=== PATIENT | female | born 1995 | race American Indian/Alaskan Native ===

== ENCOUNTER 2019-05-13 03:07 | Emergency (ER) | payer MEDICAID ==
[2019-05-13 03:39] LABS: Basophils # (Auto) 0.1 K/mm3 (0.0-0.1); Basophils % (Auto) 0.8 % (0.0-1.8); Eosinophils # (Auto) 0.3 K/mm3 (0.0-0.4); Eosinophils % (Auto) 2.7 % (0.0-4.3); Hematocrit 39.6 % (30.3-42.9); Lymphocytes # (Auto) 3.2 K/mm3 (1.2-5.4); Lymphocytes % (Auto) 32.4 % (13.4-35.0); Mean Corpuscular HGB Conc 33 % (30-34); Mean Corpuscular Volume 90 fl (79-97); Monocytes # (Auto) 1.1 K/mm3 (0.0-0.8); Monocytes % (Auto) 11.2 % (0.0-7.3); Platelet Count 232 K/mm3 (140-440); Red Cell Distribution Width 13.9 % (13.2-15.2)
[2019-05-13 03:55] LABS: Bilirubin,Urine NEG (Negative); Blood,Urine LG (Negative); Color,Urine Yellow (Yellow); Urobilinogen,Urine < 2.0 mg/dL (<2.0)
[2019-05-13 04:02] LABS: RBC,Urine > 182.0 /HPF (0.0-6.0)
--- NOTE | 2019-05-13 04:39 | Ultrasound Report ---
OB ultrasound first trimester INDICATION: Vaginal bleeding Findings: Transabdominal and transvaginal imaging is performed. No intrauterine is seen. Endometrial stripe measures 9 mm. The uterus measures 9.7 cm in le ngth. The right ovary measures 3 cm the left ovary measures 3.4 cm. The ovaries are unremarkable in appeara nce. There is no free fluid. No adnexal masses are seen. IMPRESSION: No intrauterine is seen. Uterus and ovaries are unremarkable. Correlation with serum beta hCG level is recommended. Follow-up ultrasound should be obtained as clin ically warranted. Signer Name: Tito Spicer MD Signed: 05/13/2019 4:34 AM Workstation Name: [id number]
--- NOTE | 2019-05-13 05:05 | Event Note ---
ED Screening Note Date of service: 05/13/19 Time: 04:45 ED Screening Note: Patient here reported that she is 11 weeks and has been passing clots with vaginal bleeding. She says she is now spotting. Patient says she had an ultrasound at 6 weeks and everything was fine. Her pain is located in her pelvic area. Patient was tenderness to palpate in pelvic area This initial assessment/diagnostic orders/clinical plan/treatment(s) is/are subject to change based on patients health status, clinical progression and re- assessment by fellow clinical providers in the ED. Further treatment and workup at subsequent clinical providers discretion. Patient/guardian urged not to elope from the ED as their condition may be serious if not clinically assessed and managed. Initial orders include: CBC, quantitative hCG, urinalysis and type and screen. OB ultrasound
[2019-05-13] MEDS ORDERED: MORPHINE IV ONE (05:11)
--- NOTE | 2019-05-13 07:21 | Emergency Department Report ---
ED HPI - General Chief complaint: Vaginal Bleeding Stated complaint: (11 WEEKS) AND BLEEDING Time Seen by Provider: 05/13/19 07:13 Source: patient Mode of arrival: Ambulatory Limitations: No Limitations - History of Present Illness Initial comments: This is a 23-year-old female nontoxic, well nourished in appearance, no acute signs of distress presents to the ED with c/o of vaginal bleeding and pelvic cramping x1 day. Patient stated she is currently about 11 weeks and had a ultrasound in 6 weeks by her [employer] that was normal.. Patient denies any abdominal pain. Patient denies any vaginal discharge or foul odor. Patient denies any nausea, vomiting, chest pain, shortness of breathe, fever, chills, headache, stiff neck, numbness, tingling. Patient denies any urinary symptoms. Patient denies any allergies or PMH. MD Complaint: vaginal bleeding, other (pelvic pain) -: days(s) (1) Location: pelvis Radiation: none Severity: mild Severity scale (0 -10): 3 Quality: cramping, aching Consistency: constant Improves with: none Associated symptoms: vaginal bleeding. denies: nausea/vomiting, vaginal discharge, abdominal pain, dysuria, headache, vision changes, malaise, dysparuenia, rash, seizure, shortness of breath, syncope, weakness Vaginal bleeding: light :: Yes Number of weeks : 11 Pre- care: followed by OB - Related Data Previous Rx's Medication Instructions Recorded Last Taken Type Nitrofurantoin [place]/M-Cryst 100 mg PO Q12HR #14 capsule 05/13/19 Unknown Rx [Macrobid CAP] Allergies Allergy/AdvReac Type Severity Reaction Status Date / Time No Known Allergies Allergy Unverified 05/13/19 03:16 ED Review of Systems ROS: Stated complaint: (11 WEEKS) AND BLEEDING Other details as noted in HPI Constitutional: denies: chills, fever Eyes: denies: eye pain, eye discharge, vision change ENT: denies: ear pain, throat pain Respiratory: denies: cough, shortness of breath, wheezing Cardiovascular: denies: chest pain, palpitations Endocrine: no symptoms reported Gastrointestinal: denies: abdominal pain, nausea, diarrhea Genitourinary: abnormal menses. denies: urgency, dysuria, discharge Musculoskeletal: denies: back pain, joint swelling, arthralgia Skin: denies: rash, lesions Neurological: denies: headache, weakness, paresthesias Psychiatric: denies: anxiety, depression Hematological/Lymphatic: denies: easy bleeding, easy bruising ED Past Medical Hx - Past Medical History Previous Medical History?: No - Surgical History Past Surgical History?: No - Social History Smoking Status: Never Smoker Substance Use Type: None - Medications Home Medications: Home Medications Medication Instructions Recorded Confirmed Last Taken Type Nitrofurantoin [place]/M-Cryst 100 mg PO Q12HR #14 capsule 05/13/19 Unknown Rx [Macrobid CAP] ED Physical Exam - General Limitations: No Limitations General appearance: alert, in no apparent distress - Head Head exam: Present: atraumatic, normocephalic - Neck Neck exam: Present: normal inspection, full ROM. Absent: tenderness, meningism us, lymphadenopathy - GI/Abdominal GI/Abdominal exam: Present: soft, normal bowel sounds. Absent: distended, tenderness, guarding, rebound, rigid, diminished bowel sounds - Extremities Exam Extremities exam: Present: normal inspection, full ROM - Back Exam Back exam: Present: normal inspection, full ROM. Absent: tenderness, CVA tenderness (R), CVA tenderness (L), muscle spasm, paraspinal tenderness, vertebral tenderness, rash noted - Neurological Exam Neurological exam: Present: alert, oriented X3, normal gait - Psychiatric Psychiatric exam: Present: normal affect, normal mood - Skin Skin exam: Present: warm, dry, intact, normal color. Absent: rash ED Course Vital Signs 05/13/19 06:01 Temperature 99 F Pulse Rate 74 Respiratory 16 Rate Blood Pressure 118/73 [Left] O2 Sat by Pulse 99 Oximetry - Reevaluation(s) Reevaluation #1: 05/13/19 07:22 Patient is speaking in full sentences with no signs of distress noted. ED Medical Decision Making - Lab Data Result diagrams: 05/13/19 03:20 - Medical Decision Making This is a 23-year-old female presents with spontaneous miscarriage and UTI. Patient is stable and was examined by me. Normal abdominal exam. US OB obtained and dictated by the radiologist. Ua obtained. Quantative serum test obtained. Patient notified of the US report with no questions noted by the patient. Patient was instructed f/u with [employer] in 2 days. RH factor negative. Patient received rhogam in the ED. Labs within normal limits. At time of discharge, the patient does not seem toxic or ill in appearance. No acute signs of distress noted. Patient agrees to discharge treatment plan of care. No further questions noted by the patient. Critical care attestation.: If time is entered above; I have spent that time in minutes in the direct care of this critically ill patient, excluding procedure time. ED Disposition Clinical Impression: Spontaneous miscarriage UTI (urinary tract infection) Qualifiers: Urinary tract infection type: acute cystitis Hematuria presence: without hematuria Qualified Code(s): N30.00 - Acute cystitis without hematuria Disposition: TO HOME OR SELFCARE Is pt being admited?: No Does the pt Need Aspirin: No Condition: Stable Instructions: Spontaneous Miscarriage (ED), Urinary Tract Infection in Women (ED) Additional Instructions: Follow-up with a OBGYN in 2 days or if symptoms worsen and continue return to emergency room as soon as possible. Prescriptions: Nitrofurantoin [place]/M-Cryst [Macrobid CAP] 100 mg PO Q12HR #14 capsule Referrals: PRIMARY CAREMD [Primary Care Provider] - 3-5 Days BLANCA GIBBS MD [Staff Physician] - 3-5 Days [facility] [Provider Group] - 3-5 Days Forms: Work/School Release Form(ED)
[2019-05-13 09:34] VITALS: BP 119/84
== END 2019-05-13 09:20 | disposition home or self-care (01) ==
LOC: ED 03:07
DX: O03.9 Complete or unspecified spontaneous abortion without complication (principal); O23.41 Unspecified infection of urinary tract in pregnancy, first trimester; Z3A.11 11 weeks gestation of pregnancy
CPT/HCPCS: 36415; 36430; 76801; 76817; 81001; 84702; 85025; 85461; 86850; 86900; 86901; 87086; 96374; 99284; J2270; J2790

== ENCOUNTER 2019-12-11 19:30 | Emergency (ER) | payer MEDICAID ==
[2019-12-11 19:37] VITALS: BP 103/72
--- NOTE | 2019-12-11 20:33 | Emergency Department Report ---
ED Allergic Reaction HPI - General Chief complaint: Allergic Reaction Stated complaint: ALLERGIC REACTION Time Seen by Provider: 12/11/19 20:02 Source: patient Mode of arrival: Ambulatory Limitations: No Limitations - History of Present Illness Initial Comments: Patient is a 24-year-old female that presents emergency room with allergic reaction. Patient states she is having red blotches all over and itching all over. Patient states that the itching is intense. Patient states itching is worse with hot shower and activity. Patient states the itching is better with rest and a cool towel. Patient that she has tried Benadryl and it is not helping. Patient states she is currently taking Tylenol Sinus for her allergies and she is taking Bactrim for cellulitis of her right breast. Patient states she saw her primary care 4 days ago and was given Bactrim DS 2 tablets every 8 hours for 14 days. Patient states her breast is improving. Patient denies discharge from her breast. Patient denies tenderness to her breast. Patient denies pain. Patient denies chest pain or shortness of breath. Patient denies recent travel. Patient denies recent international travel. Patient denies exposure to the novel coronavirus. Patient denies sick contacts. Patient denies fever and chills. Patient denies cough. Patient denies diarrhea. Patient denies coming in contact with anybody with symptoms of the novel coronavirus. Complaint: allergic reaction, other -: Sudden Exposure: medication Symptoms: rash, itching Severity: severe Treatment Prior to Arrival: benadryl, ice, other Previous Allergy History: none - Related Data Previous Rx's Medication Instructions Recorded Last Taken Type Nitrofurantoin [place]/M-Cryst 100 mg PO Q12HR #14 capsule 05/13/19 Unknown Rx [Macrobid CAP] Doxycycline Hyclate [Doxycycline 100 mg PO Q12HR 14 Days #7 tab 12/11/19 Unknown Rx Hyclate TAB] methylPREDNISolone [Medrol 4MG 4 mg PO DAILY 6 Days #1 tab.ds.pk 12/11/19 Unknown Rx DOSEPAK (21 tabs)] Allergies Allergy/AdvReac Type Severity Reaction Status Date / Time No Known Allergies Allergy Unverified 05/13/19 03:16 ED Review of Systems ROS: Stated complaint: ALLERGIC REACTION Other details as noted in HPI Constitutional: denies: chills, fever Eyes: denies: eye pain, eye discharge, vision change ENT: denies: ear pain, throat pain Respiratory: denies: cough, shortness of breath, wheezing Cardiovascular: denies: chest pain, palpitations Endocrine: no symptoms reported Gastrointestinal: denies: abdominal pain, nausea, diarrhea Genitourinary: denies: urgency, dysuria, discharge Musculoskeletal: denies: back pain, joint swelling, arthralgia Skin: rash, pruritus. denies: lesions Neurological: denies: headache, weakness, paresthesias Psychiatric: denies: anxiety, depression Hematological/Lymphatic: denies: easy bleeding, easy bruising ED Past Medical Hx - Past Medical History Previous Medical History?: No - Surgical History Past Surgical History?: No - Family History Family history: no significant - Social History Smoking Status: Never Smoker Substance Use Type: None - Medications Home Medications: Home Medications Medication Instructions Recorded Confirmed Last Taken Type Nitrofurantoin [place]/M-Cryst 100 mg PO Q12HR #14 capsule 05/13/19 Unknown Rx [Macrobid CAP] Doxycycline Hyclate [Doxycycline 100 mg PO Q12HR 14 Days #7 tab 12/11/19 Unknown Rx Hyclate TAB] methylPREDNISolone [Medrol 4MG 4 mg PO DAILY 6 Days #1 tab.ds.pk 12/11/19 Unknown Rx DOSEPAK (21 tabs)] ED Physical Exam - General Limitations: No Limitations General appearance: alert, in no apparent distress - Head Head exam: Present: atraumatic, normocephalic - Eye Eye exam: Present: normal appearance - ENT ENT exam: Present: mucous membranes moist - Neck Neck exam: Present: normal inspection - Respiratory Respiratory exam: Present: normal lung sounds bilaterally. Absent: respiratory distress - Cardiovascular Cardiovascular Exam: Present: regular rate, normal rhythm. Absent: systolic murmur, diastolic murmur, rubs, gallop - GI/Abdominal GI/Abdominal exam: Present: soft, normal bowel sounds - Extremities Exam Extremities exam: Present: normal inspection - Back Exam Back exam: Present: normal inspection - Neurological Exam Neurological exam: Present: alert, oriented X3 - Psychiatric Psychiatric exam: Present: normal affect, normal mood - Skin Skin exam: Present: warm, dry, intact, rash, erythema ED Course Vital Signs 12/11/19 12/11/19 19:37 22:14 Temperature 99.0 F Pulse Rate 91 H 88 Respiratory 16 17 Rate Blood Pressure 103/72 [Right] O2 Sat by Pulse 99 98 Oximetry - Reevaluation(s) Reevaluation #1: Initial evaluation done. Patient appears to be taking a extremely high dose of Bactrim. I reviewed the Bactrim prescription for which the patient has brought with her. The prescription read Bactrim DS 2 tablets p.o. every 8 hours for 14 days. Based on the patient having history of cellulitis and taking an extreme amount of Bactrim, we will check the patient's CMP and CBC. 12/11/19 20:33 Reevaluation #2: I discussed all results and clinical findings with patient. I discussed plan of care with patient. Patient agrees with plan of care. Patient is stable for discharge. Patient will be discharged home. Patient given discharge instructions. Patient voiced understanding of discharge instructions. 12/11/19 21:21 ED Medical Decision Making - Lab Data Result diagrams: 12/11/19 20:37 12/11/19 20:37 - Medical Decision Making Patient is a 24-year-old female that presents emergency room with complaints of rash, pruritus. Patient has been taking Tylenol Sinus for her allergies and was also placed by her primary care on Bactrim DS for breast cellulitis. Patient stated that her breast complaints had improved. Patient's Bactrim prescription was Bactrim DS 2 tablets p.o. every 8 hours for 14 days. I believe this is a extreme amount of Bactrim and Bactrim will be stopped. Patient will be placed on doxycycline and given a steroid pack for her pruritus. Patient had labs done secondary to her complaints and labs are essentially unremarkable. Patient stable for discharge. Patient given discharge structures. Patient discharged home. - Differential Diagnosis Med reaction, allergic reaction, rash, itching, pruritus Critical care attestation.: If time is entered above; I have spent that time in minutes in the direct care of this critically ill patient, excluding procedure time. ED Disposition Clinical Impression: Itching due to drug, Rash, Abnormal LFTs Medication reaction Qualifiers: Encounter type: initial encounter Qualified Code(s): T50.905A - Adverse effect of unspecified drugs, medicaments and biological substances, initial encounter Allergic reaction Qualifiers: Encounter type: initial encounter Qualified Code(s): T78.40XA - Allergy, unspe cified, initial encounter Disposition: TO HOME OR SELFCARE Is pt being admited?: No Does the pt Need Aspirin: No Condition: Stable Instructions: Urticaria (ED), Acute Rash (ED), Antibiotic Medication Allergy (ED), Allergies (ED) Additional Instructions: patient to stop Bactrim. Patient to start doxycycline tomorrow. Patient to follow-up with primary care in 2 to 3 days. Patient to rest. Patient to increase water. Patient to take ibuprofen as needed for pain. Patient will require repeat labs with her primary care to reassess her liver. Patient to avoid alcohol and fatty foods. Patient to take Benadryl as needed for itching. Patient to avoid Tylenol. Patient to take meds as directed. Patient to return to the ER if condition worsens, changes or new symptoms arise. Prescriptions: Doxycycline Hyclate [Doxycycline Hyclate TAB] 100 mg PO Q12HR 14 Days #7 tab methylPREDNISolone [Medrol 4MG DOSEPAK (21 tabs)] 4 mg PO DAILY 6 Days #1 tab.ds.pk Referrals: PRIMARY CARE, [Primary Care Provider] - 2-3 Days Time of Disposition: 21:39
[2019-12-11 20:58] LABS: Hematocrit 41.3 % (30.3-42.9); Hemoglobin 13.9 gm/dl (10.1-14.3); Mean Corpuscular HGB Conc 34 % (30-34); Mean Corpuscular Volume 89 fl (79-97); Platelet Count 137 K/mm3 (140-440); Red Blood Count 4.63 M/mm3 (3.65-5.03); Red Cell Distribution Width 13.9 % (13.2-15.2)
[2019-12-11 21:12] LABS: Alanine Aminotransferase 69 units/L (7-56); Albumin 4.1 g/dL (3.9-5); BUN/Creatinine Ratio 8; Blood Urea Nitrogen 8 mg/dL (7-17); Calcium 8.6 mg/dL (8.4-10.2); Hemolysis Index 26
[2019-12-11] MEDS ORDERED: methylPREDNISolone Sod Succinate 125 MG/2 ML INJ IM ONE (21:20)
== END 2019-12-11 21:45 | disposition home or self-care (01) ==
LOC: ED 19:30
DX: T50.905A Adverse effect of unspecified drugs, medicaments and biological substances, initial encounter (principal); T78.40XA Allergy, unspecified, initial encounter; Z79.899 Other long term (current) drug therapy; X58.XXXA Exposure to other specified factors, initial encounter; Y93.89 Activity, other specified; Y92.89 Other specified places as the place of occurrence of the external cause; Y99.8 Other external cause status
CPT/HCPCS: 36415; 80053; 85027; 96372; 99283; J2930

== ENCOUNTER 2020-03-30 23:10 | Emergency (ER) | payer MEDICAID ==
[2020-03-31 01:53] VITALS: BP 119/76
[2020-03-31 03:09] LABS: Basophils % (Auto) 0.7 % (0.0-1.8); Eosinophils # (Auto) 0.1 K/mm3 (0.0-0.4); Eosinophils % (Auto) 1.2 % (0.0-4.3); Hemoglobin 13.7 gm/dl (10.1-14.3); Lymphocytes # (Auto) 2.4 K/mm3 (1.2-5.4); Lymphocytes % (Auto) 35.7 % (13.4-35.0); Mean Corpuscular HGB Conc 33 % (30-34); Mean Corpuscular Volume 90 fl (79-97); Monocytes # (Auto) 0.8 K/mm3 (0.0-0.8); Monocytes % (Auto) 11.8 % (0.0-7.3); Platelet Count 265 K/mm3 (140-440); Red Blood Count 4.56 M/mm3 (3.65-5.03); Red Cell Distribution Width 13.2 % (13.2-15.2)
--- NOTE | 2020-03-31 04:19 | Ultrasound Report ---
Early obstetrical ultrasound INDICATION: Early , cramping, spotting COMPARISON: None TECHNIQUE: Transabdominal and endovaginal FINDINGS: Early intrauterine is noted with estimated gestational age by crown-rump length o f 19 weeks 0 days. This is mildly more advanced than the 7 weeks 3 days expected by clinical dating. Cardiac activity was noted with heart rate documented at 171 bpm. No obvious abnormalities are seen. Both ovaries appear within normal limits. No adnexal masses are seen. No free fluid is seen. Signer Name: Palu John MD Signed: 03/31/2020 4:15 AM Workstation Name: [id number]
[2020-03-31 04:46] LABS: Bilirubin,Urine NEG (Negative); Blood,Urine NEG (Negative); Color,Urine Yellow (Yellow); Mucus,Urine 1+ /HPF; Protein,Urine <15 mg/dL mg/dL (Negative)
--- NOTE | 2020-03-31 04:49 | Emergency Department Report ---
ED Female HPI - General Chief complaint: Vaginal Bleeding Stated complaint: SPOTTING,VOMITING,POSS 8 WKS PREG Source: patient Mode of arrival: Ambulatory Limitations: No Limitations - History of Present Illness Initial comments: Patient is a A1 24-year-old -[place] female who is approximately 7 weeks gestation and who presents to the ED with complaint of acute onset persistent diffuse low abdominal pain and vaginal bleeding for the last 4 days. Patient states that the bleeding became heavier about 12 hours ago. Patient denies dizziness, syncope, dysuria, urinary frequency and urgency, vaginal discharge, low back pain, fever, chills, cough, chest pain or shortness of breath or sore throat, diarrhea, nausea and vomiting. MD Complaint: vaginal bleeding, pelvic pain -: Sudden, days(s) (4) Location: suprapubic, other (vaginal bleeding) Radiation: non-radiating Severity: moderate Severity scale (0 -10): 5 Quality: cramping, sharp Consistency: intermittent Improves with: none Worsens with: none Are you Now?: Yes Last Menstrual Period: 02/21/20 EDC: 11/27/20 Associated Symptoms: denies other symptoms, vaginal bleeding, abdominal pain, hematuria. denies: vaginal discharge, nausea/vomiting, fever/chills, headaches, loss of appetite, dysuria, rash, seizure, shortness of breath, syncope, weakness - Related Data Sexually active: Yes : 4 Para: 2 A: 1 Previous Rx's Medication Instructions Recorded Last Taken Type Nitrofurantoin Atkinson/M-Cryst 100 mg PO Q12HR #14 capsule 05/13/19 Unknown Rx [Macrobid CAP] Doxycycline Hyclate [Doxycycline 100 mg PO Q12HR 14 Days #7 tab 12/11/19 Unknown Rx Hyclate TAB] methylPREDNISolone [Medrol 4MG 4 mg PO DAILY 6 Days #1 tab.ds.pk 12/11/19 Unknown Rx DOSEPAK (21 tabs)] Acetaminophen [Tylenol] 500 mg PO Q6HR PRN #30 tablet 03/31/20 Unknown Rx Allergies Allergy/AdvReac Type Severity Reaction Status Date / Time No Known Allergies Allergy Unverified 05/13/19 03:16 ED Review of Systems ROS: Stated complaint: SPOTTING,VOMITING,POSS 8 WKS PREG Other details as noted in HPI Constitutional: denies: chills, fever Eyes: denies: eye pain, eye discharge, vision change ENT: denies: ear pain, throat pain Respiratory: denies: cough, shortness of breath, wheezing Cardiovascular: denies: chest pain, palpitations Endocrine: no symptoms reported Gastrointestinal: abdominal pain. denies: nausea, diarrhea Genitourinary: hematuria, abnormal menses (Diffuse low abdominal pain vaginal bleeding). denies: urgency, dysuria, discharge Musculoskeletal: denies: back pain, joint swelling, arthralgia Skin: denies: rash, lesions Neurological: denies: headache, weakness, paresthesias Psychiatric: denies: anxiety, depression Hematological/Lymphatic: denies: easy bleeding, easy bruising ED Past Medical Hx - Past Medical History Previous Medical History?: Yes Additional medical history: Fibroids - Surgical History Past Surgical History?: No - Social History Smoking Status: Never Smoker - Medications Home Medications: Home Medications Medication Instructions Recorded Confirmed Last Taken Type Nitrofurantoin Atkinson/M-Cryst 100 mg PO Q12HR #14 capsule 05/13/19 Unknown Rx [Macrobid CAP] Doxycycline Hyclate [Doxycycline 100 mg PO Q12HR 14 Days #7 tab 12/11/19 Unknown Rx Hyclate TAB] methylPREDNISolone [Medrol 4MG 4 mg PO DAILY 6 Days #1 tab.ds.pk 12/11/19 Unknown Rx DOSEPAK (21 tabs)] Acetaminophen [Tylenol] 500 mg PO Q6HR PRN #30 tablet 03/31/20 Unknown Rx ED Physical Exam - General Limitations: No Limitations General appearance: alert, in no apparent distress - Head Head exam: Present: atraumatic, normocephalic, normal inspection - Eye Eye exam: Present: normal appearance, PERRL, EOMI Pupils: Present: normal accommodation - ENT ENT exam: Present: normal exam, normal orophraynx, mucous membranes moist, TM's normal bilaterally, normal external ear exam - Neck Neck exam: Present: normal inspection, full ROM - Respiratory Respiratory exam: Present: normal lung sounds bilaterally. Absent: respiratory distress, wheezes, rales, stridor, chest wall tenderness, accessory muscle use, decreased breath sounds, prolonged expiratory - Cardiovascular Cardiovascular Exam: Present: regular rate, normal rhythm, normal heart sounds. Absent: systolic murmur, diastolic murmur, rubs, gallop - GI/Abdominal GI/Abdominal exam: Present: soft, tenderness (Palpable mild suprapubic tenderness), normal bowel sounds. Absent: guarding, rebound, hyperactive bowel sounds, hypoactive bowel sounds, organomegaly - Bi-manual exam: Present: other (Pelvic exam deferred, patient prefers her own DISTILLATION OPERATOR physician) - Extremities Exam Extremities exam: Present: normal inspection, full ROM, normal capillary refill - Back Exam Back exam: Present: normal inspection, full ROM. Absent: tenderness, CVA tenderness (R), CVA tenderness (L), muscle spasm, paraspinal tenderness, vertebral tenderness - Neurological Exam Neurological exam: Present: alert, oriented X3, CN II-XII intact, normal gait, reflexes normal - Psychiatric Psychiatric exam: Present: normal affect, normal mood - Skin Skin exam: Present: warm, dry, intact, normal color. Absent: rash ED Course Vital Signs 03/31/20 03/31/20 01:52 01:59 Temperature 98.5 F 98.5 F Pulse Rate 61 64 Respiratory 20 20 Rate Blood Pressure 119/76 Blood Pressure 119/76 [Right] O2 Sat by Pulse 100 99 Oximetry ED Medical Decision Making - Lab Data Result diagrams: 03/31/20 02:15 - Radiology Data Radiology results: report reviewed, image reviewed Findings [facility] [address] [place] [address] Ultrasound Report Signed with Bessy Patient: MARIIA VALDOVINOS MR#: [id number] : 1995 Acct:[id number] Age/Sex: 24 / F ADM Date: 03/30/20 Loc: ED Attending Dr: Ordering Physician: ANGÉLICA SEGOVIA Date of Service: 03/31/20 Procedure(s): US OB transvaginal Accession Number(s): [id number] cc: ANGÉLICA SEGOVIA ADDENDUM Correction: Estimated gestational age by crown-rump length is 9 weeks 0 days Signer Name: Paul John MD Signed: 03/31/2020 4:49 AM Workstation Name: [id number] Addendum Transcribed By: DILSHAD Addendum Dictated By: Paul John MD Addendum Electronically Authenticated By: Paul John MD Addendum Signed Date/Time: 03/31/20448 DD/ /15/448 TD/TT: / Early obstetrical ultrasound INDICATION: Early , cramping, spotting COMPARISON: None TECHNIQUE: Transabdominal and endovaginal FINDINGS: Early intrauterine is noted with estimated gestational age by crown-rump length of 19 weeks 0 days. This is mildly more advanced than the 7 weeks 3 days expected by clinical dating. Cardiac activity was noted with heart rate documented at 171 bpm. No obvious abnormalities are seen. Both ovaries appear within normal limits. No adnexal masses are seen. No free fluid is seen. Signer Name: Paul John MD Signed: 03/31/2020 4:15 AM Workstation Name: [id number] Transcribed By: GJ Dictated By: Paul John MD Electronically Authenticated By: Paul John MD Signed Date/Time: 03/31/20414 DD/ 1 TD/TT: - Medical Decision Making This is a A1 24-year-old -[place] female who is approximately 7 weeks gestation and who presents to the ED with complaint of acute onset persistent diffuse low abdominal pain and vaginal bleeding for the last 4 days. Patient states that the bleeding became heavier about 12 hours ago. In the ED, patient is alert and oriented x3 and is not in distress. Patient was treated for pain in the ED. Lab test results [place] [address] and the ABO/Rhesus was A negative. The patient also received RhoGam injection in the ED based on the fact that she is A negative blood type. The transvaginal ultrasound showed early intrauterine is noted with estimated gestational age by crown-rump length of 9 weeks 0 days. This is mildly more advanced than the 7 weeks 3 days expected by clinical dating. Cardiac activity was noted with heart rate documented at 171 bpm. No obvious abnormalities are seen. Both ovaries appear within normal limits. No adnexal masses are seen. No free fluid is seen. On reevaluation, patient felt better and was discharged home on medications and advised to follow-up with her DISTILLATION OPERATOR physician in 3 to 5 days for reevaluation - Differential Diagnosis Threatened miscarriage; Subchorionic bleed; Ovarian cyst; UTI Critical care attestation.: If time is entered above; I have spent that time in minutes in the direct care of this critically ill patient, excluding procedure time. ED Disposition Clinical Impression: Threatened miscarriage, Abdominal pain during in first trimester, Need for rhogam due to Rh negative mother Disposition: DC-01 TO HOME OR SELFCARE Is pt being admited?: No Does the pt Need Aspirin: No Condition: Stable Instructions: Threatened Miscarriage (ED), Abdominal Pain in (ED) Additional Instructions: Maintain a complete pelvic rest with no physical or strenuous or sexual activities. Follow-up with your DISTILLATION OPERATOR physician in 3 to 5 days for reevaluation. Return to the ED immediately if symptoms get worse. Prescriptions: Acetaminophen [Tylenol] 500 mg PO Q6HR PRN #30 tablet PRN Reason: Pain , Severe (7-10) Referrals: JADA STEVENS MD [Staff Physician] - 3-5 Days Time of Disposition: 04:51 Print Language: LIBYAN
== END 2020-03-31 08:37 | disposition home or self-care (01) ==
LOC: ED 23:10
DX: O20.0 Threatened abortion (principal); Z3A.01 Less than 8 weeks gestation of pregnancy
CPT/HCPCS: 36415; 76801; 76817; 81001; 84702; 85025; 85461; 86850; 86900; 86901; 96372; 99284; J2790

== ENCOUNTER 2021-10-08 08:04 | Emergency (ER) | payer MEDICAID ==
[2021-10-08] MEDS ORDERED: ACETAMINOPHEN 500 MG TAB PO ONE (08:24)
[2021-10-08] MEDS ORDERED: KETOROLAC 60 MG/2 ML INJ IM ONE (08:24)
--- NOTE | 2021-10-08 08:27 | Emergency Department Report ---
ED Back Pain/Injury HPI - General Chief Complaint: Back Pain/Injury Stated Complaint: RT BACK PAIN Time Seen by Provider: 10/08/21 08:17 Source: patient Limitations: No Limitations - History of Present Illness Initial Comments: 26-year-old female who denies any significant past medical history presents to the ER today with complaints of right midthoracic back pain. Patient states that she woke up with the pain this morning. She still has been constant and nonradiating. She states that it is worse with any movement, palpation and with deep breaths. She states that she applied icy hot to the area and it made it worse. She denies any particular injury or strenuous activity. She reports urinary frequency, but no dysuria or hematuria. She denies any associated chest pain or shortness of breath. She denies any recent URI symptoms or cough. She denies any prior issues with her back in the past. She denies any nausea, vomiting or abdominal pain. She denies any lower extremity swelling, calf pain, bowel or bladder incontinence, focal weakness, numbness or tingling. Her last menstrual cycle was about 2 weeks ago. She is currently on control pills. She did have an elective about 1 month ago. She denies any recent travel. She has not been vaccinated against COVID-19. MD Complaint: back pain -: This morning - Related Data Previous Rx's Medication Instructions Recorded Last Taken Type Acetaminophen [Tylenol] 500 mg PO Q6HR PRN #30 tablet 03/31/20 Unknown Rx Ketorolac [Toradol] 10 mg PO Q6H PRN #20 tab 10/08/21 Unknown Rx methOCARBAMOL [Robaxin TAB] 750 mg PO Q8H PRN #30 tab 10/08/21 Unknown Rx Allergies Allergy/AdvReac Type Severity Reaction Status Date / Time No Known Allergies Allergy Unverified 05/13/19 03:16 ED Review of Systems ROS: Stated complaint: RT BACK PAIN Other details as noted in HPI Comment: All other systems reviewed and negative Constitutional: denies: chills, diaphoresis, fever, malaise, weakness Eyes: denies: eye pain, eye discharge, vision change ENT: denies: ear pain, throat pain Respiratory: denies: cough, shortness of breath, SOB with exertion, SOB at rest, wheezing Cardiovascular: denies: chest pain, palpitations, dyspnea on exertion, edema, syncope, paroxysmal nocturnal dyspnea Gastrointestinal: denies: abdominal pain, nausea, vomiting, diarrhea, constipation, hematemesis, hematochezia Genitourinary: denies: urgency, dysuria, frequency, hematuria, discharge, abnormal menses, dyspareunia Musculoskeletal: back pain. denies: joint swelling, arthralgia, myalgia Skin: denies: rash, lesions, change in color, change in hair/nails, pruritus Neurological: denies: headache, weakness, numbness, paresthesias, confusion, abnormal gait, vertigo Psychiatric: denies: anxiety, depression, auditory hallucinations, visual hallucinations, homicidal thoughts, suicidal thoughts Hematological/Lymphatic: denies: easy bleeding, easy bruising, swollen glands ED Past Medical Hx - Past Medical History Previous Medical History?: Yes Additional medical history: Fibroids - Surgical History Past Surgical History?: Yes - Social History Smoking Status: Never Smoker - Medications Home Medications: Home Medications Medication Instructions Recorded Confirmed Last Taken Type Acetaminophen [Tylenol] 500 mg PO Q6HR PRN #30 tablet 03/31/20 Unknown Rx Ketorolac [Toradol] 10 mg PO Q6H PRN #20 tab 10/08/21 Unknown Rx methOCARBAMOL [Robaxin TAB] 750 mg PO Q8H PRN #30 tab 10/08/21 Unknown Rx ED Physical Exam - General Limitations: No Limitations General appearance: alert, anxious, in distress (Secondary to pain) - Head Head exam: Present: atraumatic, normocephalic, normal inspection - Eye Eye exam: Present: normal appearance, PERRL, EOMI Pupils: Present: normal accommodation - Neck Neck exam: Present: normal inspection, full ROM. Absent: meningismus - Respiratory Respiratory exam: Present: normal lung sounds bilaterally. Absent: respiratory distress, wheezes, rales, rhonchi, stridor, chest wall tenderness - Cardiovascular Cardiovascular Exam: Present: regular rate, normal rhythm, normal heart sounds - GI/Abdominal GI/Abdominal exam: Present: soft. Absent: distended, tenderness, guarding, rebound - Back Exam Back exam: Present: normal inspection, muscle spasm (Moderate, right midthoracic area), paraspinal tenderness (Moderate tenderness right mid thoracic area). Absent: full ROM (Range of motion of the thoracic spine reduced due to pain.), vertebral tenderness, rash noted - Neurological Exam Neurological exam: Present: alert, oriented X3, CN II-XII intact, reflexes normal. Absent: motor sensory deficit - Psychiatric Psychiatric exam: Present: normal affect, normal mood - Skin Skin exam: Present: intact ED Course Vital Signs 10/08/21 08:10 Temperature 98.7 F Pulse Rate 78 Respiratory 24 Rate Blood Pressure 121/81 O2 Sat by Pulse 99 Oximetry ED Medical Decision Making - Radiology Data Radiology results: report reviewed Patient: MARIIA VALDOVINOS MR#: [id number] : 1995 Acct:[id number] Age/Sex: 26 / F ADM Date: 10/08/21 Loc: ED Attending Dr: Ordering Physician: AMRITA SOW Date of Service: 10/08/21 Procedure(s): XR chest routine 2V Accession Number(s): [id number] cc: AMRITA SOW Fluoro Time In Minutes: CHEST 2 VIEWS INDICATION / CLINICAL INFORMATION: pleuritic right upper back pain. COMPARISON: None available. FINDINGS: SUPPORT DEVICES: None. HEART / MEDIASTINUM: No significant abnormality. LUNGS / PLEURA: No significant pulmonary or pleural abnormality. No pneumothorax. ADDITIONAL FINDINGS: No significant additional findings. IMPRESSION: 1. No acute findings. Signer Name: Teo Swartz MD Signed: 10/08/2021 11:04 AM Workstation Name: [id number] Transcribed By: DIONE Dictated By: Teo Swartz MD Electronically Authenticated By: Teo Swartz MD Signed Date/Time: 10/08/21 110 DD/ 03 TD/TT: - Medical Decision Making Chest x-ray shows nothing acute. Urinalysis normal and hCG is normal. Patient has calmed down significantly and she appears to be feeling much better after IM Toradol and Tylenol given here in the ER. She is moving better. She has a normal gait. She is not toxic or ill-appearing. Her vital signs are stable. She has no chest pain or shortness of breath. No lower extremity swelling or calf tenderness. I suspect that this is more related to muscle spasms. At this time I do not suspect OR/unstable angina, PE, cauda equina, epidural abscess or hematoma or any other acute abnormality warranting any additional testing at this time. Discussed suspected diagnosis with patient. Discussed treatment plan with patient. Patient expressed understanding of all instructions and agree with plan. Patient stable at time of discharge. Critical care attestation.: If time is entered above; I have spent that time in minutes in the direct care of this critically ill patient, excluding procedure time. ED Disposition Clinical Impression: Thoracic back pain, Back spasm Disposition: 01 HOME / SELF CARE / HOMELESS Is pt being admited?: No Does the pt Need Aspirin: No Condition: Stable Instructions: Muscle Cramps and Spasms, [id number], Acute Back Pain, Adult, Back Exercises, [id number] Additional Instructions: I recommend that you take the Toradol as well as the Robaxin which is a muscle relaxer as prescribed to continue help with your pain. I recommend that you follow the gentle back stretching exercises. Follow-up with your primary care doctor next week. Return to the ER if your symptoms worsens in any way. Prescriptions: methOCARBAMOL [Robaxin TAB] 750 mg PO Q8H PRN #30 tab PRN Reason: Muscle Spasm Ketorolac [Toradol] 10 mg PO Q6H PRN #20 tab PRN Reason: Pain Referrals: PRIMARY MD JAYSHREE [Primary Care Provider] - 3-5 Days YASMEEN RIVERA MD [Staff Physician] - 3-5 Days Forms: Work/School Release Form(ED) Time of Disposition: 11:01
[2021-10-08 09:00] LABS: Bacteria,Urine 1+ /HPF (Negative); Bilirubin,Urine NEG (Negative); Blood,Urine NEG (Negative); Color,Urine Yellow (Yellow); Protein,Urine <15 mg/dL mg/dL (Negative); Urobilinogen,Urine < 2.0 mg/dL (<2.0)
[2021-10-08 09:33] LABS: HCG Qualitative,Urine Negative (Negative)
--- NOTE | 2021-10-08 11:09 | XRay Report ---
CHEST 2 VIEWS INDICATION / CLINICAL INFORMATION: pleuritic right upper back pain. COMPARISON: None available. FINDINGS: SUPPORT DEVICES: None. HEART / MEDIASTINUM: No significant abnormality. LUNGS / PLEURA: No significant pulmonary or pleural abnormality. No pneumothorax. ADDITIONAL FINDINGS: No significant additional findings. IMPRESSION: 1. No acute findings. Signer Name: Teo Swartz MD Signed: 10/08/2021 11:04 AM Workstation Name: [id number]
[2021-10-08 12:18] VITALS: BP 118/78
== END 2021-10-08 12:18 | disposition home or self-care (01) ==
LOC: ED 08:04
DX: M54.6 Pain in thoracic spine (principal); M62.830 Muscle spasm of back; Z79.899 Other long term (current) drug therapy
CPT/HCPCS: 71046; 81001; 81025; 96372; 99283; J1885